=== PATIENT | female | born 1985 ===

== ENCOUNTER 2017-03-29 03:15 | Inpatient (IN) | payer BC ==
[~2017-03-29] VITALS: Ht 182.9 cm; Wt 79.1 kg
[2017-03-29] VITALS (35 sets, daily range): BP systolic 90–138; BP diastolic 57–89; PULSE 70–136; TEMP 97.9–99.2
[2017-03-29] MEDS ORDERED: PRENATAL MVI (03:34)
[2017-03-29 05:03] LABS: BASO % 0.3 % (0.0-2.0); EOS # 0.1 (0.0-0.7); EOS % 0.9 % (0-4.0); GRAN # 5.6 (1.4-6.5); GRAN % 72.4 % (42.2-75.2); HEMATOCRIT 37.6 % (37.0-47.0); HEMOGLOBIN 12.5 g/dl (12.5-16.0); LYMPH # 1.5 (1.2-3.4); LYMPH % 19.8 % (20.0-51.0); MEAN CELL VOLUME 95 fl (80.0-100.0); MEAN CORPUSCULAR HEMOGLOBIN 32 pg (27.0-31.0); MEAN CORPUSCULAR HGB CONC 33 g/dl (33.0-37.0); MEAN PLATELET VOLUME 10.8 fl (7.4-10.4); MONO # 0.5 (0.1-0.6); MONO % 6.2 % (1.7-9.3); PLATELET COUNT 232 K/mm3 (130-400); RED BLOOD COUNT 3.96 M/mm3 (4.10-5.30); REDCELL DISTRIBUTION WIDTH-CV 12.4 % (11.5-14.5); WHITE BLOOD COUNT 7.7 K/mm3 (4.8-10.8)
[2017-03-30 07:50] LABS: BASO % 0.2 % (0.0-2.0); EOS % 0.3 % (0-4.0); GRAN # 10.6 (1.4-6.5); GRAN % 81.9 % (42.2-75.2); LYMPH # 1.7 (1.2-3.4); LYMPH % 12.7 % (20.0-51.0); MEAN CELL VOLUME 93 fl (80.0-100.0); MEAN CORPUSCULAR HGB CONC 34 g/dl (33.0-37.0); MEAN PLATELET VOLUME 10.1 fl (7.4-10.4); MONO # 0.6 (0.1-0.6); MONO % 4.4 % (1.7-9.3); PLATELET COUNT 222 K/mm3 (130-400); REDCELL DISTRIBUTION WIDTH-CV 12.8 % (11.5-14.5)
[2017-03-30 07:54] LABS: HEMATOCRIT 27.1 % (37.0-47.0); HEMOGLOBIN 9.2 g/dl (12.5-16.0); MEAN CORPUSCULAR HEMOGLOBIN 32 pg (27.0-31.0)
[2017-03-30 08:10] VITALS: BP 101/53; PULSE 101; TEMP 97.9
[2017-03-30 17:00] VITALS: BP 101/61; PULSE 94; TEMP 98.2
[2017-03-30 20:00] VITALS: BP 111/65; PULSE 103; TEMP 98.3
[2017-03-31] MEDS ORDERED: MOTRIN 800800 MG/TAB PO (08:35)
[2017-03-31] MEDS ORDERED: PERCOCET 325 MG1 TA2 PO (08:35)
[2017-03-31 09:00] VITALS: BP 109/68; PULSE 103; TEMP 97.9
== END 2017-03-31 16:35 | disposition home or self-care (01) | DRG 775 ==
LOC: LDRO 03:15 → LDR 03:16 → OB 16:00
PROVIDERS: Obstetrics & Gynecology; Student in an Organized Health Care Education/Training Program
PROC: 10E0XZZ Delivery of Products of Conception, External Approach (ICD-10-PCS; principal; 2017-03-29)
PROC: 0KQM0ZZ Repair Perineum Muscle, Open Approach (ICD-10-PCS; 2017-03-29)
DX: O99.824 Streptococcus B carrier state complicating childbirth (principal); O70.1 Second degree perineal laceration during delivery; Z3A.38 38 weeks gestation of pregnancy; Z37.0 Single live birth
CPT/HCPCS: J2540; J2590; J7120